=== PATIENT | male | born 1945 | race Caucasian/White ===

== ENCOUNTER 2019-10-07 10:39 | Outpatient (CLI) | payer MEDICARE, OTHER ==
--- NOTE | 2019-10-07 11:00 | RAD ---
XR Knee Lt 3 View HISTORY: Pain in the left knee FINDINGS: No fracture or dislocation is identified. Mild degenerative changes are present. There is chondrocalc inosis.
--- NOTE | 2019-10-07 11:03 | RAD ---
Exam:3 views right HISTORY: Pain COMPARISON: None FINDINGS: No joint effusion. 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 No fracture or di slocation. 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
== END 2019-10-07 10:40 | disposition home or self-care (01) ==
LOC: RAD 10:39
PROVIDERS: ATTEND Family Medicine
DX: M25.561 Pain in right knee (principal); M25.562 Pain in left knee; M17.11 Unilateral primary osteoarthritis, right knee

== ENCOUNTER 2020-01-22 07:55 | Outpatient (CLI) | payer MEDICARE, OTHER ==
[2020-01-22 14:22] LABS: Hemoglobin 17.3 g/dL (14.0-18.0); Mean Corpuscular HGB CONC 33.1 g/dL (32.0-36.0); Mean Corpuscular Hemoglobin 30.1 pg (27.0-31.0); Mean Corpuscular Volume 90.8 fL (78.0-98.0); Mean Platelet Volume 7.7 fL (7.4-10.4); Platelet Count 213 thou/uL (130-400); RBC Distribution Width 12.5 % (11.5-14.5); Red Blood Cell (RBC) Count 5.74 mill/uL (4.70-6.10); White Blood Cell (WBC) Count 6.3 thou/uL (4.8-10.8)
[2020-01-22 14:28] LABS: INR-International Normal Ratio 1.1; PTT 27.7 sec (22.9-36.1); Prothrombin Time 14.7 sec (12.0-14.7)
[2020-01-22 15:19] LABS: Anion Gap 13 mmol/L (10-20); BUN (Urea Nitrogen) 21 mg/dL (8.4-25.7); Calc. Creatinine Clearance 0 mL/min (70-130); Carbon Dioxide 25 mmol/L (23-31); Chloride 106 mmol/L (98-107); Estimated GFR-MDRD 82; Glucose 126 mg/dL (83-110); Potassium 4.5 mmol/L (3.5-5.1); Sodium 139 mmol/L (136-145)
[2020-01-23 10:59] LABS: SARS-CoV-2 MS2 Positive; SARS-CoV-2 N Gene Negative; SARS-CoV-2 S Gene Negative; SARS-CoV-2 by NAA Not Detected (NotDetected); SARS-CoV-2 orf1ab Negative
--- NOTE | 2020-01-25 12:02 | EKG ---
Test Reason : PREOP Blood Pressure : / mmHG Vent. Rate : 064 BPM Atrial Rate : 064 BPM P-R Int : 150 ms QRS Dur : 110 ms QT Int : 412 ms P-R-T Axes : 060 -03 020 degrees QTc Int : 425 ms Normal sinus rhythm Cannot rule out Inferior infarct , age undetermined Abnormal ECG No previous ECGs available Confirmed by ARLENE COLORADO (2) on 01/25/2020 12:01:45 PM Referred By: ANTONETTE, Confirmed By:ARLENE COLORADO
== END 2020-01-22 07:56 | disposition home or self-care (01) ==
LOC: LABBT 07:55
PROVIDERS: ATTEND Surgery
DX: Z01.818 Encounter for other preprocedural examination (principal); Z20.828 Contact with and (suspected) exposure to other viral communicable diseases; M50.121 Cervical disc disorder at C4-C5 level with radiculopathy; M48.02 Spinal stenosis, cervical region
CPT/HCPCS: 80048; 85027; 85610; 85730; 93005; U0003; 87635; 93010

== ENCOUNTER 2020-01-27 09:23 | Day surgery (SDC) | payer MEDICARE, OTHER ==
[2020-01-26 11:38] VITALS: BMI 28.5
[2020-01-27] MEDS ORDERED: Lidocaine 2% PF 100 mg/5 ml Syringe ONE (09:43)
[2020-01-27] MEDS ORDERED: PROPOFOL 20 ML ONE (09:43)
[2020-01-27] MEDS ORDERED: Rocuronium Bromide 50 MG/5 ML VIAL ONE (09:43)
[2020-01-27] MEDS ORDERED: Fentanyl 250 MCG/5 ML VIAL ONE (11:06)
[2020-01-27] MEDS ORDERED: Thrombin 5000 UNITS/5 ML VIAL ONE (11:08)
[2020-01-27] MEDS ORDERED: Lidocaine 1% PF 5 ML VIAL ONE (11:21)
[2020-01-27] MEDS ORDERED: Vecuronium 10 MG VIAL ONE (11:21)
[2020-01-27] MEDS ORDERED: PROPOFOL 200 MG/20 ML VIAL ONE (11:21)
[2020-01-27] MEDS ORDERED: Dexamethasone 20 MG/5 ML VIAL ONE (11:21)
[2020-01-27] MEDS ORDERED: EPHEDRINE 25 MG/5 ML SYRINGE ONE (11:21)
[2020-01-27] MEDS ORDERED: Ondansetron PF 4 MG/2 ML Vial ONE (11:21)
[2020-01-27] MEDS ORDERED: Rocuronium Bromide 10 MG/ML (10ML VIAL) ONE (11:21)
[2020-01-27] MEDS ORDERED: SUGAMMADEX SODIUM 200 MG/2 ML VIAL ONE (13:10)
[2020-01-27] MEDS ORDERED: Morphine Sulfate 2 MG/ML SYRINGE SLOW IVP PRN (13:14)
[2020-01-27] MEDS ORDERED: HYDROmorphone 2 MG/ML VIAL SLOW IVP PRN (13:14)
[2020-01-27] MEDS ORDERED: PACU-Morphine 4MG/ML VIAL SLOW IVP PRN (13:14)
[2020-01-27] MEDS ORDERED: Promethazine HCl 25 MG/ML VIAL SLOW IVP PRN (13:14)
[2020-01-27] MEDS ORDERED: Ondansetron HCl/PF 4 MG/2 ML Vial IVP PRN (13:14)
[2020-01-27] MEDS ORDERED: Promethazine HCl 25 MG/ML VIAL IM PRN ×2 (13:14→13:53)
[2020-01-27] MEDS ORDERED: diphenhydrAMINE 25 MG CAP PO PRN (13:53)
[2020-01-27] MEDS ORDERED: Morphine 2 MG/ML VIAL SLOW IVP PRN (13:53)
[2020-01-27] MEDS ORDERED: Mag-Al 1200 mg/1200 mg/30 ML UDCUP PO PRN (13:53)
[2020-01-27] MEDS ORDERED: traMADol HCl 50 MG TAB PO PRN (13:53)
[2020-01-27] MEDS ORDERED: Milk Of Magnesia 30 ML UDCUP PO PRN (13:53)
[2020-01-27] MEDS ORDERED: Ondansetron PF 4 MG/2 ML Vial IVP PRN (13:53)
[2020-01-27] MEDS ORDERED: Bisacodyl 10 MG SUPP PR PRN (13:53)
[2020-01-27] MEDS ORDERED: Acetaminophen/Codeine 30-300mg Tablet PO PRN (13:53)
[2020-01-27] MEDS ORDERED: tiZANidine HCl 4 MG TAB PO PRN (13:53)
[2020-01-27] MEDS ORDERED: Acetaminophen 325 MG TAB PO PRN (13:53)
[2020-01-27] MEDS ORDERED: Cepastat Lozenges 1 LOZ PO PRN (15:59)
[2020-01-27] MEDS ORDERED: Chloraseptic Spray 180 ml Bottle PO PRN (15:59)
[2020-01-27] MEDS ORDERED: diphenhydrAMINE 50 MG/ML VIAL IVP SCH (16:45)
[2020-01-27] MEDS: HYDROcodone/Acetaminophen 7.5/325 mg Tablet PO PRN ×2 (16:53→23:16)
[2020-01-27] MEDS: CEFAZOLIN 2 GM in Premix Bag 1 BAG IVPB SCH (18:04)
[2020-01-27] MEDS: Sodium Chloride 0.9% 1,000 ML IV SCH (18:43)
[2020-01-28] MEDS: Sodium Chloride 0.9% 1,000 ML IV SCH (03:21)
[2020-01-28] MEDS: CEFAZOLIN 2 GM in Premix Bag 1 BAG IVPB SCH ×2 (03:28→09:06)
[2020-01-28 04:57] VITALS: TEMP 98.4
[2020-01-28 08:05] VITALS: BP 135/86
[2020-01-28] MEDS ORDERED: FLU VACC QS2020-21(65YR UP)/PF 240 MCG/0.7 ML SYRINGE IM ONE (09:00)
--- NOTE | 2020-01-28 10:42 | PRG ---
DATE OF SERVICE: 01/28/2020 Mr. Stanley is postoperative day 1 following C4 through C6 ACDF. He has had resolution in his arm pain and feels as if he is doing very well. We will remove his drain. His strength is full. We will plan for discharge. Job ID: [id number]
--- NOTE | 2020-01-28 12:45 | OP ---
DATE OF PROCEDURE: 01/27/2020 SWEDGER: Radha Rivera PA-C PREPROCEDURE DIAGNOSIS: Neck and arm pain with proximal adjacent segment disease consistent with cervical stenosis. POSTPROCEDURE DIAGNOSIS: Neck and arm pain with proximal adjacent segment disease consistent with cervical stenosis. PROCEDURES PERFORMED: 1. Anterior C4-C5, C5-C6 diskectomy for decompression of the spinal cord and C5 nerve roots and C6 nerve roots. 2. Placement of interbody spacers packed with graft C4-C5, C5-C6, separate from plate. 3. Anterior cervical plate screw fixation, C4-C5, C5-C6, separate from spacer. 4. Use of operative microscope for microdissection. DESCRIPTION OF PROCEDURE: After informed consent was obtained from the patient, the patient was brought to the OR. Proper patient, pause, and identification were carried out. He was placed under excellent general endotracheal anesthesia and positioned supine on the OR table. All appropriate points were padded. We identified the right anterior oblique gómez that would allow for approach to C4, C5, C6 segments. This region was sterilely cleansed, prepared, and draped. Proper patient, pause, and identification were carried out. The wound was then opened with a combination of sharp, monopolar, and blunt dissection. We proceeded lateral to the larynx, pharynx, tracheoesophageal bundle and medial to the right carotid sheath. We identified the prevertebral layer of deep cervical fascia. Distraction at C4-C5 then occurred. Microscope was brought in for microdissection. A C4-C5 diskectomy was performed with decompression of spinal cord and the C5 nerve roots. The endplates were prepared and interbody spacer separate from the plate packed with graft, was then placed at C4-C5 to initiate arthrodesis. The distraction was then removed and distraction at C5-C6 then occurred with diskectomy and decompression of spinal cord and C6 nerve roots. The endplates again were prepared. Interbody spacer appropriate dimension packed with graft was placed at C5-C6, again separate from the plate to initiate arthrodesis. Copious irrigation occurred throughout. Then, we released distraction at C5-C6 and we then turned our attention to the anterior cervical plate and screw fixation at C4, C5, C6. I was satisfied with our construct. The anterior cervical plate and screw fixation and final tightening then occurred. The wound was then copiously irrigated and closed in anatomic layers following meticulous hemostasis. The patient emerged from anesthesia. Job ID: [id number]
== END 2020-01-28 10:39 | disposition home or self-care (01) ==
LOC: SDC 09:23 → SURG A 13:53 → SDC 01-28 10:39
PROVIDERS: ATTEND Surgery
PROC: 0RG20A0 Fusion of 2 or more Cervical Vertebral Joints with Interbody Fusion Device, Anterior Approach, Anterior Column, Open Approach (ICD-10-PCS; principal; 2020-01-27)
PROC: 0RT30ZZ Resection of Cervical Vertebral Disc, Open Approach (ICD-10-PCS; 2020-01-27)
DX: M48.02 Spinal stenosis, cervical region (principal); M50.10 Cervical disc disorder with radiculopathy, unspecified cervical region; M19.90 Unspecified osteoarthritis, unspecified site; Z79.1 Long term (current) use of non-steroidal anti-inflammatories (NSAID); Z98.1 Arthrodesis status; Z23 Encounter for immunization
CPT/HCPCS: 20930; 22551; 22552; 22853 ×2; 76000; 90662; C1713 ×2; C1776; G0008; 90471; J0690; J1100; J2001; J2405; J2704; J3010; Q0163